=== PATIENT | female | born 1980 | race Caucasian/White ===

== ENCOUNTER 2025-02-11 10:53 | Day surgery (SDC) | payer BC ==
[2025-02-11] MEDS ORDERED: Midazolam 1 MG/ML 2 ML SDV ONE (10:58)
[2025-02-11] MEDS ORDERED: Propofol 200 MG/20 ML SDV ONE (10:59)
[2025-02-11] MEDS ORDERED: Sodium Chloride 0.9% 10 ML Syringe FLUSH PRN (11:00)
[2025-02-11] MEDS: Lactated Ringers 1,000 ML IV SCH (11:30)
[2025-02-11 16:05] VITALS: BP 103/64; PULSE 58
== END 2025-02-11 13:15 | disposition home or self-care (01) ==
LOC: KA.SDS 10:53
PROVIDERS: ATTEND Family Medicine
DX: Z12.11 Encounter for screening for malignant neoplasm of colon (principal); K64.8 Other hemorrhoids
CPT/HCPCS: 00812; 81025; J2250; J2704; J7120